=== PATIENT | female | born 1995 | race Hispanic/Latino ===

== ENCOUNTER 2019-09-06 11:46 | Emergency (ER) | payer SELFPAY ==
[2019-09-06] MEDS ORDERED: IPRATROPIUM/ALBUTEROL SULFATE 3 ML SOLUTION IH ONE (12:32)
[2019-09-06 12:37] LABS: APPEARANCE,URINE Clear (CLEAR); BILIRUBIN,URINE Negative (NEGATIVE); COLOR,URINE Yellow (YELLOW); GLUCOSE, URINE (UA) Negative (NEGATIVE); KETONES,URINE Negative (NEGATIVE); LEUKOCYTE ESTERASE ,URINE Trace (NEGATIVE); NITRATE,URINE Negative (NEGATIVE); OCCULT BLOOD,URINE Negative (NEGATIVE); PROTEIN,URINE Negative (NEGATIVE)
[2019-09-06 12:44] LABS: HCG,QUAL RESULT NEGATIVE (NEGATIVE)
[2019-09-06 13:27] LABS: BACTERIA,URINE Few /HPF (None Seen); RBC,URINE 0-1 /HPF (0-1)
[2019-09-06 13:28] LABS: WBC,URINE 0-1 /HPF (0-1)
[2019-09-06] MEDS ORDERED: ALBUTEROL SULFATE 0.083% 2.5 MG/3 ML INH IH ONE (13:54)
[2019-09-06] MEDS ORDERED: LIDOCAINE HCL-MPF 1% 2ML VIAL ONE (15:28)
[2019-09-06] MEDS ORDERED: CEFTRIAXONE SODIUM 500 MG VIAL ONE (15:28)
[2019-09-06] MEDS ORDERED: AZITHROMYCIN 250 MG TABLET PO ONE (15:28)
[2019-09-06] MEDS ORDERED: ONDANSETRON ODT 4 MG TAB ONE (15:29)
== END 2019-09-06 15:56 | disposition home or self-care (01) ==
LOC: EDH 11:46
DX: N76.0 Acute vaginitis (principal); J45.909 Unspecified asthma, uncomplicated
CPT/HCPCS: 81001; 81025; 87210; 87486; 87797; 94640 ×2; 96372; 99284; J0696; J3490

== ENCOUNTER 2022-12-21 13:04 | Emergency (ER) | payer OTHER ==
[~2022-12-21] VITALS: Ht 157.5 cm; Wt 90.3 kg
[2022-12-21 15:45] LABS: APPEARANCE,URINE CLOUDY (CLEAR); BILIRUBIN,URINE NEGATIVE (NEGATIVE); COLOR,URINE YELLOW (YELLOW); GLUCOSE, URINE (UA) NEGATIVE (NEGATIVE); KETONES,URINE NEGATIVE (NEGATIVE); LEUKOCYTE ESTERASE ,URINE NEGATIVE Leu/uL (NEGATIVE); NITRATE,URINE 2+ (NEGATIVE); OCCULT BLOOD,URINE NEGATIVE (NEGATIVE); PH,URINE 6.5 (5.0-8.0); PROTEIN,URINE NEGATIVE (NEGATIVE); UROBILINOGEN,URINE 0.2 mg/dL (0.2-1.0)
[2022-12-21 15:57] LABS: BACTERIA,URINE MOD /HPF (None Seen); MUCUS,URINE FEW LPF (None Seen); SQUAMOUS EPITHELIAL CELL,UR RARE /HPF (0-2); YEAST,URINE BUDDING FEW /HPF (None Seen)
[2022-12-21 15:58] LABS: HCG,QUALITATIVE URINE NEGATIVE (NEGATIVE)
[2022-12-21 16:12] VITALS: BP 128/72
[2022-12-21] MEDS ORDERED: FLUC150T PO (16:16)
[2022-12-21] MEDS ORDERED: FLUCONAZOLE 100 MG TAB PO ONE (16:30)
== END 2022-12-21 16:35 | disposition home or self-care (01) ==
LOC: EDH 13:04
DX: N89.8 Other specified noninflammatory disorders of vagina (principal); J45.909 Unspecified asthma, uncomplicated
CPT/HCPCS: 81001; 81025; 87077; 87088; 87186; 87486; 87797